=== PATIENT | female | born 1965 | race Native Hawaiian/Other Pacific Islander ===

== ENCOUNTER 2021-10-17 23:21 | Emergency (ER) | payer OTHER ==
[~2021-10-17] VITALS: Ht 157.5 cm; Wt 77.1 kg
[2021-10-18 03:40] VITALS: BP 132/82; TEMP 98.9
== END 2021-10-18 03:40 | disposition home or self-care (01) ==
LOC: ED 23:21
DX: U07.1 COVID-19 (principal); J06.9 Acute upper respiratory infection, unspecified; F17.210 Nicotine dependence, cigarettes, uncomplicated
CPT/HCPCS: 87502; 87635; 99283; U0003